=== PATIENT | male | born 1965 | race Caucasian/White ===

== ENCOUNTER 2019-01-21 21:32 | Emergency (ER) | payer BC, OTHER ==
[~2019-01-21] VITALS: Ht 185.4 cm; Wt 108.8 kg
[2019-01-21 22:50] VITALS: BP 124/74
== END 2019-01-21 22:51 | disposition home or self-care (01) ==
LOC: ED 22:45
DX: H60.12 Cellulitis of left external ear (principal)
CPT/HCPCS: 99283